=== PATIENT | male | born 1980 | race Two or more races ===

== ENCOUNTER 2021-11-06 00:56 | Emergency (ER) | payer SELFPAY ==
[~2021-11-06] VITALS: Ht 170.2 cm; Wt 90.7 kg
[2021-11-06] MEDS ORDERED: MORPHINE SULFATE 4 MG/ML SYR/VIAL IM ONE (04:00)
[2021-11-06] MEDS ORDERED: HYDR-4798 PO (04:17)
[2021-11-06 04:50] VITALS: BP 133/81
== END 2021-11-06 05:29 | disposition home or self-care (01) ==
LOC: ER 00:56
DX: S22.31XA Fracture of one rib, right side, initial encounter for closed fracture (principal); V43.52XA Car driver injured in collision with other type car in traffic accident, initial encounter; Y93.89 Activity, other specified; Y92.410 Unspecified street and highway as the place of occurrence of the external cause; Y99.8 Other external cause status
CPT/HCPCS: 71046; 96372; 99283; J2270